=== PATIENT | female | born 1935 | race Caucasian/White ===

== ENCOUNTER 2016-07-22 04:22 | Day surgery (SDC) | payer MEDICARE, OTHER ==
[2016-07-15 12:55] LABS: BASOPHILS 0.2 %; BASOPHILS ABSOLUTE 0.01 10/3/uL (0.0-0.16); EOSINOPHILS 4.4 %; HEMATOCRIT 35.8 % (36.0-48.0); HEMOGLOBIN 11.7 g/dL (12.0-16.0); IMMATURE GRANULOCYTES 0.2 %; IMMATURE GRANULOCYTES ABSOLUTE 0.01 10/3/uL (0.0-0.11); LYMPHOCYTES 34.2 %; LYMPHOCYTES ABSOLUTE 1.57 10/3/uL (0.67-4.30); MEAN CORPUSCULAR HEMOGLOB 30.5 pg (26.0-34.0); MEAN CORPUSCULAR VOLUME 93.5 fL (80-100); MEAN PLATELET VOLUME 8.8 fL (9.2-13.0); MONOCYTES ABSOLUTE 0.46 10/3/uL (0.21-1.20); NEUTROPHILS ABSOLUTE 2.34 10/3/uL (2.02-8.40); PLATELET COUNT 228 10/3/uL (150-400); RBC DISTRIBUTION WIDTH 14.6 % (12.0-16.0); RED CELL COUNT 3.83 10/6/uL (4.0-5.6); WHITE BLOOD CELLS 4.6 10/3/uL (4.5-10.5)
[2016-07-15 12:58] LABS: MANUAL DIFF NO %; MEAN CORPUS HGB CONC 32.7 g/dL (32.0-36.0)
[2016-07-15 13:11] LABS: ALBUMIN 3.7 G/DL (3.5-5.0); ALKALINE PHOSPHATASE 74 U/L (45-117); BUN (BLOOD UREA NITROGEN) 15 MG/DL (6-23); CALCIUM, SERUM 9.2 MG/DL (8.5-10.4); CHLORIDE, SERUM 106 MMOL/L (96-112); CO2 (CARBON DIOXIDE) 30 MMOL/L (24-34); CREATININE 0.84 MG/DL (0.55-1.02); GFR AFRICAN AMERICAN 74 ML/MIN (>=60); GFR NON AFRICAN AMERICAN 64 ML/MIN (>=60); GLOBULIN 3.8 G/DL (2.5-4.1); GLUCOSE, SERUM 104 MG/DL (60-99); POTASSIUM, SERUM 3.7 MMOL/L (3.5-5.3); SGOT(AST) 15 U/L (5-40); SGPT(ALT) 20 U/L (5-65); SODIUM, SERUM 143 MMOL/L (135-148); TOTAL BILIRUBIN 0.4 MG/DL (0-1.2); TOTAL PROTEIN 7.5 G/DL (6.0-8.5)
--- NOTE | ~2016-07-22 | OP ---
Record Of Operation [facility] [address] [place]. [address] NAME: ENEDINA RODRIGUES : 31 STATUS : REG [facility]#: [id number] AGE: 81 ADM/REG DATE : 07/22/16 MR#: [id number] REPORT SERV DATE: 07/22/16 DICTATED BY: JUAN MANUEL KIRK DATE: 07/22/16 REPORT STATUS : Draft TRANSCRIBED BY: MODL DATE: 07/22/16 DATE OF PROCEDURE: 07/22/2016 PREOPERATIVE DIAGNOSIS: Ventral incisional hernia. POSTOPERATIVE DIAGNOSIS: Ventral incisional hernia. PROCEDURE PERFORMED: Repair of ventral incisional hernia with implantation of mesh. SURGEON: Juan Manuel Kirk M.D. ANESTHESIA: General. ESTIMATED BLOOD LOSS: Minimal. SPECIMENS REMOVED: None. BRIEF HISTORY: Ms. Rodrigues is an 81-year-old female, who has developed a ventral incisional hernia from the small midline incision she had from the laparoscopic colon procedure. This has been steadily growing, becoming tender and symptomatic. She states that she is unable to sleep and function because of the pain. She presents today for repair. FINDINGS AT THE TIME OF PROCEDURE: Ms. Rodrigues was noted to have a fairly sizable fascial defect with rectus diastasis. This was repaired using a Ventralight ST patch. DETAILS: Following informed consent, the patient was taken to the operative suite and after successful induction of general endotracheal anesthesia, her abdomen was prepped and draped in usual sterile fashion. Ioban adhesive drape was applied. An incision was made directly on top of the palpable hernia defect. Dissection was carried through skin and subcutaneous tissues. Hernia sac was densely adherent to the umbilical skin and we this sharply with Metzenbaum scissors and actually opened the hernia sac. There was no incarcerated viscera, but this allowed us to clearly palpate the fascial defect. She had a rectus diastasis particularly on the right side. After identifying the fascial defect, we circumferentially dissected the subfascial extraperitoneal plane. We then approximated the hernia sac and perineum to exclude the peritoneal cavity for mesh placement. We measured the fascial defect and opted to use a 6 cm Ventralight patch. This was deployed in the subfascial extraperitoneal space and secured to the fascia using interrupted Ethibond sutures. Once the mesh had been properly fixated, we trimmed the mesh tabs in appropriate length and then approximated the fascia over the mesh using interrupted Ethibond sutures. The wound was copiously irrigated. Hemostasis was found to be secured. Skin edges were reapproximated using 3-0 Vicryl subdermals followed by 4-0 Monocryl subcuticular suture and Dermabond. At the completion of the case, all sponge and needle counts were correct. The patient was extubated and transferred to recovery room in satisfactory condition. Record Of Operation [address] [address] NAME: ENEDINA RODRIGUES : 33 STATUS : REG [facility] PAT#: [id number] AGE: 81 ADM/REG DATE : 07/22/16 MR#: [id number] REPORT SERV DATE: 07/22/16 DICTATED BY: JUAN MANUEL KIRK DATE: 07/22/16 REPORT STATUS : Draft TRANSCRIBED BY: TERESO DATE: 07/22/16 CAROLA/TERESO Juan Manuel Kirk M.D. / [id number] CC: Maria Elena Hawk M.D.
[~2016-07-22 04:22] MED LIST: ADVAIR45P INH; DIOVAN HCT PO; GLUCPH8 PO; LOFIB67 PO; P20 PO; PCET PO; PROVENT20 INH; REQUIP25 PO; ZITHROMAX500 MG PO; ZOCOR20 PO
== END 2016-07-22 15:30 | disposition home or self-care (01) ==
LOC: SDC 04:22
PROVIDERS: Surgery
PROC: 0WUF0JZ Supplement Abdominal Wall with Synthetic Substitute, Open Approach (ICD-10-PCS; 2016-07-22)
PROC: 0WQF0ZZ Repair Abdominal Wall, Open Approach (ICD-10-PCS; principal; 2016-07-22 05:45)
DX: K43.2 Incisional hernia without obstruction or gangrene (principal); J44.9 Chronic obstructive pulmonary disease, unspecified; I10 Essential (primary) hypertension; E11.9 Type 2 diabetes mellitus without complications; G25.81 Restless legs syndrome; D64.9 Anemia, unspecified; Z88.8 Allergy status to other drugs, medicaments and biological substances
CPT/HCPCS: 80053; 82962; 85025; 87641; 93005; A9270-GY; J0690; J2405; J2710; J3010

== ENCOUNTER 2016-07-23 22:38 | Observation (INO) | payer MEDICARE, OTHER ==
--- NOTE | ~2016-07-23 | HP ---
History And Physical [place] [id number] [facility] [place]. [address] NAME: ENEDINA RODRIGUES : 33 STATUS : ADM IN [facility]#: [id number] AGE: 81 ADM/REG DATE : 07/24/16 MR#: [id number] REPORT SERV DATE: 07/24/16 DICTATED BY: EMILY FENG DATE: 07/24/16 REPORT STATUS : Draft TRANSCRIBED BY: MODL DATE: 07/24/16 DATE OF ADMISSION: 07/24/2016 POINT OF ENTRY: [facility] Emergency Department. PRIMARY CARE PHYSICIAN: Dr. Bruner. PRIMARY ONCOLOGIST: Dr. Arce. PRIMARY SURGEON: Dr. Clemens. CHIEF COMPLAINT: Possible overdose, sedation, and lethargy. HISTORY OF PRESENT ILLNESS: Ms. Rodrigues is an 81-year-old female with a history of breast cancer, status post lumpectomy as well as metastatic colon cancer, status post hemicolectomy, currently on chemotherapy, who underwent ventral incisional hernia repair surgery with Dr. Clemens on 07/22/2016, who is brought in by EMS for concerns for possible overdose. As mentioned above, she underwent a ventral incisional hernia repair surgery with Dr. Clemens on 07/22/2016. She was discharged to home. Her family members last saw her at 02:30 on Tuesday afternoon, acting fine. She reportedly took a 5 mg pill of Percocet about 03:15, and when family arrived back at her house at 05:30, she was "unresponsive," and not waking up despite repeated efforts to get her to wake up. Initial evaluation in the emergency department revealed a temperature 98.8 degrees Fahrenheit; she was saturating 95% reportedly on room air, but she was also noted to be very hypoxemic on room air, as low as 60% to 70%. Family states that she was starting to wake up upon arrival to the ER, but was still not quite back to normal. She received 0.2 mg of IV Narcan with continued improvement in the patient's level of consciousness and mental status. Labs notable for a troponin of 0.40 as well as a serum bicarb of 41. Chest x-ray was abnormal for a widened mediastinum versus possible artifact from positioning. ABG showed some mild respiratory alkalosis as well as hypoxemia. BNP was elevated at 513. Given the patient's hypoxemia as well as elevated troponin level, she was subsequently admitted to the Hospitalist Service for further evaluation and management. REVIEW OF SYSTEMS: The patient does currently endorse some shortness of breath, especially with speaking as well as the abdominal pain, but denies any chest pain, recent cough, sputum production, wheezing. Comprehensive review of systems otherwise negative unless listed in the history of present illness. PREVIOUS MEDICAL HISTORY: 1. COPD, not on home oxygen. 2. History of breast cancer, status post lumpectomy. 3. History of metastatic colon cancer, status post colectomy and chemotherapy. History And Physical [address] [address] NAME: ENEDINA RODRIGUES : 33 STATUS : ADM IN [facility]#: [id number] AGE: 81 ADM/REG DATE : 07/24/16 MR#: [id number] REPORT SERV DATE: 07/24/16 DICTATED BY: EMILY FENG DATE: 07/24/16 REPORT STATUS : Draft TRANSCRIBED BY: TERESO DATE: 07/24/16 4. Restless legs syndrome. 5. Gastroesophageal reflux disease. 6. Cyt-[id number]-[id number] diabetes mellitus type 2. 7. Multiple myeloma, on therapy. 8. Hypertension. 9. Hyperlipidemia. SURGICAL HISTORY: 1. Right hemicolectomy, 04/2015. 2. Ventral incisional hernia repair surgery, 07/22/2016. 3. Breast lumpectomy. ALLERGIES: ACTONEL. MEDICATIONS: Home medications: 1. Advair 2 puffs inhalation p.r.n. 2. Glucophage 850 mg b.i.d. 3. Zofran 4 mg 4 times daily p.r.n. 4. Percocet 10/325 one tab q.4 hours p.r.n.. 5. Requip 0.5 mg b.i.d. 6. Simvastatin 20 mg at bedtime. 7. Valsartan hydrochlorothiazide 1 tablet daily. SOCIAL HISTORY: She denies any tobacco, alcohol, or illicit. She is a former smoker. FAMILY MEDICAL HISTORY: Mother with history of cholangiocarcinoma; father with coronary artery disease as well as rheumatic heart disease; sibling with history of coronary artery disease at an early age, in the 50s, as well as hypertension. LABS AND IMAGIN. White count is 7.2, hemoglobin is 10.6, hematocrit is 32.4, and platelet count is 233. INR is 1.4. 2. Sodium is 140, potassium 2.9, chloride 95, carbon dioxide 41, BUN 11, creatinine 0.77, glucose is 186, calcium is 9.0. Magnesium is 2.5. Protein is 7.3, albumin 3.0, bilirubin is 0.7. ALT is 15, AST 16, alkaline phosphatase is 63. 3. Troponin is 0.40. BNP is 513. 4. Urine drug screen as well as serum drug screen is negative. 5. Chest x-ray per my review shows a widened mediastinum versus possible artifact from positioning. I do not appreciate any focal infiltrates or consolidation or evidence of intravascular volume overload. 6. ABG: A pH of 7.50, pCO2 is 52, pO2 is 59, bicarb is 40, saturating 98% on 2 L per nasal cannula. 7. EKG per my review shows normal sinus rhythm with an incomplete right bundle branch block as well as early changes of LVH, but otherwise no evidence of any acute ischemia or infarction. PHYSICAL EXAMINATION: History And Physical [address] [address] NAME: ENEDINA RODRIGUES : 33 STATUS : ADM IN [facility]#: [id number] AGE: 81 ADM/REG DATE : 07/24/16 MR#: [id number] REPORT SERV DATE: 07/24/16 DICTATED BY: EMILY FENG DATE: 07/24/16 REPORT STATUS : Draft TRANSCRIBED BY: MODL DATE: 07/24/16 VITAL SIGNS: Temperature is 98.8 degrees Fahrenheit, pulse is 100, respirations 14, saturating 95% on room air, blood pressure 110/65. On recheck, blood pressure is now 114/84, pulse of 99, saturating 94% on 3 L nasal cannula. GENERAL: The patient is awake, alert, and in no acute distress, resting comfortably in bed. She is a well-developed and well-nourished elderly female. Family is at bedside. HEENT: Atraumatic and normocephalic. Moist mucous membranes. Pupils are equal, round, and reactive to light and accommodation. Extraocular eye movements are intact. No scleral icterus. NECK: No jugular venous distention. No carotid bruits. CARDIAC: Regular rate and rhythm. No murmurs, rubs, or gallops. Normal S1 and S2. LUNGS: Is on oxygen, is somewhat tachypneic and short of breath. She has diffuse inspiratory crackles, primarily in the bases, but also about jail up the lung bolaños. No wheezes or rhonchi appreciated. ABDOMEN: Currently has an abdominal binder in place. Her incision is currently bandaged. I did not take down the incision at this time. Hypoactive bowel sounds throughout. No rebound, guarding, or rigidity. EXTREMITIES: Warm and well perfused. No cyanosis, clubbing, or edema. SKIN: Warm and dry. PSYCHIATRIC: Affect appropriate. NEUROLOGIC: Alert and oriented x3. Cranial nerves 2 through 12 grossly intact. Speech is normal. Gait not assessed. ASSESSMENT: Ms. Rodrigues is an 81-year-old female who is postoperative day 1 from a ventral incisional hernia repair surgery, who was brought to the emergency department for unresponsiveness and sedation, likely secondary to narcotics, who instantly is now found to be hypoxemic as well as with an elevated troponin level. Problem List: 1. Narcotic overdose with sedation and lethargy, now resolved. 2. Acute hypoxic respiratory failure. 3. Elevated troponin value. 4. Hypokalemia. 5. Elevated BNP level. 6. Metabolic alkalosis. 7. Postoperative day 1, ventral incisional hernia repair surgery. PLAN: 1. Narcotic overdose, status post Narcan administration. The patient's mental status is now back to her baseline. We will continue to hold sedating medications given her recent sedation and lethargy requiring Narcan. 2. Elevated troponin value. The patient denies chest pain. EKG is nonischemic. She does have risk factors including diabetes, hypertension, hyperlipidemia, as well as family history. We will continue to trend out cardiac enzymes, checking an echocardiogram as well as consulting cardiology for assistance. We will place the patient on an aspirin. Continue the patient's home statin. 3. Acute hypoxic respiratory failure. The patient does have a history of COPD, but is not on home oxygen at this time. She does report some shortness of breath. Chest x-ray is History And Physical [address] [address] NAME: ENEDINA RODRIGUES : 33 STATUS : ADM IN PAT#: [id number] AGE: 81 ADM/REG DATE : 07/24/16 MR#: [id number] REPORT SERV DATE: 07/24/16 DICTATED BY: EMILY FENG DATE: 07/24/16 REPORT STATUS : Draft TRANSCRIBED BY: TERESO DATE: 07/24/16 markedly abnormal for a concern for a wide mediastinum of unclear significance. We will check a CTA of the chest to rule out PE or other cardiopulmonary abnormality that may contribute to the patient's shortness of breath and hypoxemia. Place the patient on DuoNeb, Brovana, Pulmicort, as well as some low-dose steroids. We will attempt to wean oxygen as tolerated. 4. Elevated BNP level. The patient does have elevated BNP level as well as some inspiratory crackles, but otherwise appears euvolemic at this time. Follow up echocardiogram as well as CT of the chest. We will hold off on any Lasix diuresis at this time. 5. Postoperative day 1 from ventral incisional hernia repair surgery. We will inform Dr. Clemens of the patient's admission, defer to him. 6. DVT prophylaxis, Lovenox subcu. 7. Code Status: The patient wishes to be full code. JCB/TERESO Emily Feng MD / [id number] CC: Maria Elena Hawk M.D. Edward Arrowsmith, M.D.
--- NOTE | ~2016-07-23 | DS ---
Discharge Summary [facility] [address] [facility]. [address] NAME: ENEDINA RODRIGUES : 31 STATUS : ADM Berna PAT#: [id number] AGE: 81 ADM/REG DATE : 07/24/16 MR#: [id number] REPORT SERV DATE: 07/25/16 DICTATED BY: DEWANYE GARCIA DATE: 07/25/16 REPORT STATUS : Draft TRANSCRIBED BY: MODL DATE: 07/25/16 ADMISSION DATE: 07/24/2016 DISCHARGE DATE: 07/25/2016 DIAGNOSES ON ADMISSION: 1. Narcotic overdose with sedation and lethargy, resolved on admission. 2. Acute hypoxic respiratory failure, resolved same day on 07/24/2016. Minimally elevated troponin. 3. Hypokalemia. 4. Elevated BNP level. 5. Postoperative day 1 status post ventral incisional hernia repair. DIAGNOSES ON DISCHARGE: 1. No evidence of lethargy. No evidence of sedation. Narcotic overdose secondary to pain medications. Resolved on the same admission day. 2. Hypoxic respiratory failure, present on admission, resolved. 3. Minimally elevated troponin secondary to demand ischemia. No evidence of heart damage. 4. Hypokalemia, resolved. 5. Normal echocardiogram with ejection fraction 60%. 6. Right lower lobe pneumonia versus atelectasis secondary to recent hernia surgery. Complete total seven days of antibiotics. 7. Pulmonary fibrosis on the CT of the chest, needs outpatient followup with harness and bag inspector; Dr. Bruner to arrange. 8. History of chronic obstructive pulmonary disease. No evidence of exacerbation. 9. Hypoxemia on ambulation. Question if related to combination of her pulmonary fibrosis recent surgery. Oxygen arranged for ambulation. 10.History of breast cancer. 11.History of metastatic colon cancer, status post partial colectomy on chemotherapy per oncologist. CONSULTANTS ON THE CASE: Delivery Professional, Dr. Sol and also General Surgery, Dr. Currie. IMAGING STUDIES DONE DURING THIS HOSPITALIZATION: CTA of the chest on 07/24/2016, showed pulmonary fibrosis, suspect superimposed right lower lobe pneumonia, marked prominence of the arterial architecture. There is no PE, but findings suggest pulmonary arterial hypertension, a preliminary report was sent. Echocardiography done on 07/24/2016, showed technically difficult study due to acoustic windows normal left ventricular size and systolic function. Estimated ejection fraction 60%. No regional wall motion abnormalities identified. Mild diastolic dysfunction, borderline. Normal right ventricular size and systolic function. Normal left atrial size. Aortic valve sclerosis without stenosis. No evidence of pericardial effusion. HISTORY OF PRESENT ILLNESS: Briefly, this is a very pleasant 81-year-old female, who was admitted by my colleague Dr. Koch for sedation and lethargy. She had incisional hernia repair surgery by Dr. Clemens on 07/22/2016. She was discharged home. On the same day, Discharge Summary [address] [address] NAME: ENEDINA RODRIGUES : 33 STATUS : ADM [place]a PAT#: [id number] AGE: 81 ADM/REG DATE : 07/24/16 MR#: [id number] REPORT SERV DATE: 07/25/16 DICTATED BY: DEWAYNE GARCIA DATE: 07/25/16 REPORT STATUS : Draft TRANSCRIBED BY: TERESO DATE: 07/25/16Tuesday afternoon, she took 5 mg pill of Percocet and then became lethargic and unresponsive. For the details, see history of present illness dictated by Dr. Koch on 07/24/2016. HOSPITAL COURSE: Briefly, even in the dictation of Dr. Koch, it was stated that in the emergency room, the patient was already responsive when she was given Narcan. She responded very well to Narcan. She was oversedated from narcotics and since she was after surgery of the abdominal ventral hernia repair, her oxygenation was not good at the baseline as well and so, narcotic medications made her oversedated. The patient improved very fast, she was doing well, and I saw her during the day on 07/24/2016, her level of consciousness was normal, she was back to her baseline, as well as her oxygenation has improved. She did not have any shortness of breath and she did not have any respiratory failure. The patient's abdominal pain has improved and she does not need any more hydrocodone or Percocet. She can manage it with Tylenol as well as she had minimally elevated troponin on admission, and business and financial counsel was consulted. She was seen by Dr. Sol. He thinks that minimally elevated troponin was related to demand ischemia from the stress, and echocardiogram showed normal echocardiogram without any wall motion abnormalities. Dr. Sol recommended the patient to be discharged without any cardiology followup. Since she does not need a Cardiology followup, I discussed personally with Dr. Sol. Regarding the CT scan of the chest, it showed pulmonary fibrosis with a probably superimposed pneumonia on the right side. The patient has history of longstanding COPD, and she was unaware of diagnosis of pulmonary fibrosis. I recommended to treat her for pneumonia since she was already started by Dr. Koch on Rocephin and azithromycin. We will give her Levaquin and she will complete total seven days of antibiotics as well as her oxygenation improved. Her oxygen saturation on room air at rest was 90%, on ambulation was 88 with improvement to 90% but mostly 88% to 87%, so we asked Machine Feeder Floorperson to arrange for oxygen on ambulation. I think the hypoxemia is combination of her COPD/pulmonary fibrosis with her recent surgery and she needs to do at home incentive spirometry and I think there is a possibility that her oxygenation may improve farther. Overall, the patient is doing well. She is able to ambulate without any problems and she was ready to be discharged home. This was discussed with the patient and her sister, and I also recommended to follow up with Dr. Bruner, and Dr. Bruner to check chest x-ray in a week, as well as she needs to be referred to harness and bag inspector for further evaluation of her pulmonary fibrosis and this should be done by Dr. Bruner, her primary care physician. This was also discussed with the patient and her sister. Overall, the patient is doing well. She is afebrile. Her white count during this hospitalization has always been normal, like yesterday on 07/23/2016 was 7.2, today on 07/25/2016 was 4.7. DISCHARGE MEDICATIONS: Aspirin 81 mg daily, simvastatin 20 mg daily, Advair two puffs inhaled p.r.n., Zofran 4 mg p.o. q.4 hours p.r.n. The patient to avoid any narcotic medication; no more Percocet. Metformin 850 p.o. b.i.d., Requip 0.5 mg p.o. twice a day, valsartan with HCTZ 80/12.5 one tablet daily, Levaquin 750 mg p.o. daily for five more days to complete total seven days of antibiotics, prednisone 20 mg p.o. daily for three more days, albuterol MDI one to two puffs q.6 hours p.r.n. for shortness of breath. Incentive Discharge Summary [address] [address] NAME: ENEDINA RODRIGUES : 33 STATUS : ADM [place] PAT#: [id number] AGE: 81 ADM/REG DATE : 07/24/16 MR#: [id number] REPORT SERV DATE: 07/25/16 DICTATED BY: DEWAYNE GARCIA DATE: 07/25/16 REPORT STATUS : Draft TRANSCRIBED BY: TERESO DATE: 07/25/16 spirometry recommended at home. I spent 45 minutes on discharge. The patient was discharged in stable condition. MG/TERESO Dewayne Garcia M.D. / [id number] CC: Maria Elena Barnett M.D. Steven Clark Kennedy, M.D.
--- NOTE | ~2016-07-23 | CN ---
Consultation Report [facility] [address] [place]. [address] NAME: ENEDINA RODRIGUES : 31 STATUS : ADM IN [facility]#: [id number] AGE: 81 ADM/REG DATE : 07/24/16 MR#: [id number] REPORT SERV DATE: 07/24/16 DICTATED BY: SANKET VASQUEZ DATE: 07/24/16 REPORT STATUS : Draft TRANSCRIBED BY: MODL DATE: 07/24/16 CONSULTATION DATE OF CONSULTATION: 07/24/2016 REASON FOR CONSULTATION: Troponinemia. HISTORY OF PRESENT ILLNESS: Ms. Rodrigues is a pleasant, 81-year-old female with a history of breast cancer, status post lumpectomy, metastatic colon cancer, status post hemicolectomy, status post recent ventral hernia repair (07/22/2016), who was discharged home with routine pain medications and after taking a Percocet developed unresponsiveness. She was admitted and triage labs were ordered. She was given Narcan with complete resolution of her altered mental status. However, she had an elevated incidental troponin of 0.4, which is now 0.49. This prompted consultation. In speaking with her and her family, she has absolutely no cardiac symptoms whatsoever. She denies having any chest pains, palpitations, pressures, dyspnea, dizziness, or loss of consciousness outside of this one episode. She otherwise functions independently and does not have any exertional symptoms in her day-to-day life. PAST MEDICAL HISTORY: As above. FAMILY HISTORY: Noncontributory for premature cardiovascular disease. SOCIAL HISTORY: The patient functions independently under normal circumstances. She denies drinking alcohol, smoking, or doing drugs. ALLERGIES: TO ACTONEL. REVIEW OF SYSTEMS: As above, all other systems otherwise negative. PHYSICAL EXAMINATION: VITAL SIGNS: Pressure 152/84, pulse 81, sinus rhythm, temperature 97.7. GENERAL: Well developed, well nourished, no acute distress. NEURO: Awake, alert and oriented x3; no focal deficits, appropriate mood. HEENT: Moist mucous membranes, anicteric sclerae, no nasal discharge. NECK: No JVD, no carotid bruit. LUNGS: Clear to auscultation bilaterally, no wheezes, rales or rhonchi. CV: Regular rhythm, normal S1/S2, no murmurs, rubs or gallops. ABD: Status post ventral hernia repair, soft, nontender. No rebound or guarding. EXT: No pitting edema, normal distal pulses. SKIN: Warm, dry and intact; no rash. PERTINENT TEST FINDINGS: Troponin 0.4 and 0.49, potassium 3.6, creatinine 0.82. White blood cell count 7.2. EKG with sinus rhythm. T-wave inversions in lead 3 and AVF. Otherwise, Consultation Report [address] [place]. [address] NAME: ENEDINA RODRIGUES : 31 STATUS : ADM IN PAT#: [id number] AGE: 81 ADM/REG DATE : 07/24/16 MR#: [id number] REPORT SERV DATE: 07/24/16 DICTATED BY: SANKET VASQUEZ DATE: 07/24/16 REPORT STATUS : Draft TRANSCRIBED BY: TERESO DATE: 07/24/16 normal EKG. IMPRESSION AND PLAN: Ms. Rodrigues is a pleasant, 81-year-old female with multiple comorbidities and metastatic cancer, who is recently status post ventral hernia repair with altered mental status in the setting of narcotic use, that is now completely resolved, with an incidental troponin of 0.4 and 0.49. Given her history and clinical course, it is likely that this troponinemia is simply a demand ischemia finding, in the setting of recent surgery as well as multiple comorbidities/chemotherapy ongoing. Accordingly, I have no recommendations to invasively manage this. I believe that given her age and risk factors, it is presumed that she likely has some degree of coronary artery disease. Therefore, she will benefit from aspirin as well as continuation of her statin. Outside of this, checking an echocardiogram will be helpful. I recommend that she continue therapies for her cancer and other medical problems, with close followup with her primary care provider. Should she develop any exertional symptoms, chest pains or chest pressures, further workup may be entertained if appropriate. JACKELINE/TERESO Sanket Vasquez MD / [id number] CC: Elizabeth Rodriguez M.D.
[2016-07-23 22:23] LABS: BE (BASE EXCESS) 14.7 MEQ/L (0 +/- 2.5); CARBOXYHEMOGLOBIN 1.5 % (0-3); HCO3 (ACTUAL BICARBONATE) 39.9 MEQ/L (23-27); HEMOBLOGIN CONTENT 11.3 G/DL (12-16); INSTRUMENT SERIAL # 8087; METHEMOGLOBIN 0.1 % (0-3); O2 CONTENT 14.1 VOL% (18-24); OPERATOR ID 17589; PCO2 (CO2 TENSION) 52 MMHG (35-45); PO2 (O2 TENSION) 59 MMHG (79-93); SAMPLE Arterial
[2016-07-23 22:24] LABS: DEVICE NC
[2016-07-23 22:29] LABS: BASOPHILS 0.1 %; BASOPHILS ABSOLUTE 0.01 10/3/uL (0.0-0.16); EOSINOPHILS 1.5 %; EOSINOPHILS ABSOLUTE 0.11 10/3/uL (0.0-0.53); HEMATOCRIT 32.4 % (36.0-48.0); HEMOGLOBIN 10.6 g/dL (12.0-16.0); IMMATURE GRANULOCYTES 0.1 %; IMMATURE GRANULOCYTES ABSOLUTE 0.01 10/3/uL (0.0-0.11); LYMPHOCYTES 10.9 %; LYMPHOCYTES ABSOLUTE 0.78 10/3/uL (0.67-4.30); MEAN CORPUS HGB CONC 32.7 g/dL (32.0-36.0); MEAN CORPUSCULAR HEMOGLOB 30.9 pg (26.0-34.0); MEAN CORPUSCULAR VOLUME 94.5 fL (80-100); MONOCYTES 9.2 %; MONOCYTES ABSOLUTE 0.66 10/3/uL (0.21-1.20); NEUTROPHILS 78.2 %; NEUTROPHILS ABSOLUTE 5.58 10/3/uL (2.02-8.40); PLATELET COUNT 233 10/3/uL (150-400); RBC DISTRIBUTION WIDTH 14.8 % (12.0-16.0); RED CELL COUNT 3.43 10/6/uL (4.0-5.6)
[2016-07-23 22:35] LABS: ER CBC TAT 0 Hrs 10 Mins; MANUAL DIFF NO %; WHITE BLOOD CELLS 7.2 10/3/uL (4.5-10.5)
[2016-07-23 22:46] LABS: DIRECT BILIRUBIN 0.2 MG/DL (0.0-0.4); INDIRECT BILIRUBIN(NOT ORDER) 0.5 MG/DL (0.1-0.9); TOTAL BILIRUBIN 0.7 MG/DL (0-1.2); TOTAL PROTEIN 7.3 G/DL (6.0-8.5)
[2016-07-23 22:47] LABS: ACETAMINOPHEN LEVEL (TYLENOL) < 2.0 MCG/ML (10.0-20.0); ALCOHOL < 3 MG/DL (0); BUN (BLOOD UREA NITROGEN) 11 MG/DL (6-23); CHEST PAIN PROFILE TAT 0 Hrs 22 Mins; CHLORIDE, SERUM 95 MMOL/L (96-112); CO2 (CARBON DIOXIDE) 41 MMOL/L (24-34); CREATININE 0.77 MG/DL (0.55-1.02); GFR AFRICAN AMERICAN 83 ML/MIN (>=60); GFR NON AFRICAN AMERICAN 71 ML/MIN (>=60); GLUCOSE, SERUM 186 MG/DL (60-99); POTASSIUM, SERUM 2.9 MMOL/L (3.5-5.3); SALICYLATE < 1.7 MG/DL (-); SODIUM, SERUM 140 MMOL/L (135-148)
[2016-07-23 23:02] LABS: INTERNATIONAL NORMAL RATI 1.4 UNITS (-); PARTIAL THROMBO TIME 29.1 SEC (22.5-37.2)
[2016-07-23 23:03] LABS: PROTIME (NOT ORD) 16.8 SEC (12.0-14.5)
[2016-07-23 23:19] LABS: AMPHETAMINES (NOT ORD) NEG (NEG); BARBITURATES (NOT ORDERED NEG (NEG); BENZODIAZEPINES (NOT ORD) NEG (NEG); CANNABINOIDS (THC) NEG (NEG); COCAINE (NOT ORDERED) NEG (NEG); OPIATES NEG (NEG); PHENCYCLIDINE(PCP) NEG (NEG); TRICYCLICS NEG (NEG)
[2016-07-24] MEDS ORDERED: ZOFRAN4 PO (00:40)
[2016-07-24] MEDS ORDERED: DIOVAN HCT PO (00:41)
[2016-07-24] MEDS ORDERED: REQUIP5 PO (00:41)
[2016-07-24] MEDS ORDERED: PERCOCET 10/3251 TAB PO (00:41)
[2016-07-24] MEDS ORDERED: GLUCPH8 PO (00:41)
[2016-07-24] MEDS ORDERED: ADVAIR45P INH (00:42)
[2016-07-24] MEDS ORDERED: ZOCOR20 PO (00:42)
[2016-07-24 05:45] LABS: CK-MB 1.3 NG/ML; CPK 220 U/L (0-200); FREE T4 1.44 NG/DL (0.76-1.46)
[2016-07-24 05:53] LABS: AMMONIA < 10 UMOL/L (11-32)
[2016-07-24 07:29] LABS: BUN (BLOOD UREA NITROGEN) 10 MG/DL (6-23); CALCIUM, SERUM 8.2 MG/DL (8.5-10.4); CHLORIDE, SERUM 101 MMOL/L (96-112); CREATININE 0.82 MG/DL (0.55-1.02); GFR AFRICAN AMERICAN 77 ML/MIN (>=60); GFR NON AFRICAN AMERICAN 66 ML/MIN (>=60); GLUCOSE, SERUM 174 MG/DL (60-99); SODIUM, SERUM 141 MMOL/L (135-148)
[2016-07-24 07:30] LABS: CO2 (CARBON DIOXIDE) 35 MMOL/L (24-34); POTASSIUM, SERUM 3.6 MMOL/L (3.5-5.3)
[2016-07-24 07:35] LABS: GLYCOHEMOGLOBIN (HbA1c) 6.6 % (4.7-6.1)
[2016-07-24 09:35] LABS: CK-MB 1.3 NG/ML; CPK 210 U/L (0-200); TROPONIN I 0.49 NG/ML (<0.05)
[2016-07-25 06:03] LABS: BASOPHILS 0 %; EOSINOPHILS 6.1 %; EOSINOPHILS ABSOLUTE 0.29 10/3/uL (0.0-0.53); HEMATOCRIT 29.7 % (36.0-48.0); HEMOGLOBIN 9.5 g/dL (12.0-16.0); IMMATURE GRANULOCYTES 0.2 %; IMMATURE GRANULOCYTES ABSOLUTE 0.01 10/3/uL (0.0-0.11); LYMPHOCYTES 21.4 %; LYMPHOCYTES ABSOLUTE 1.01 10/3/uL (0.67-4.30); MEAN CORPUSCULAR HEMOGLOB 30.8 pg (26.0-34.0); MEAN CORPUSCULAR VOLUME 96.4 fL (80-100); MEAN PLATELET VOLUME 9.4 fL (9.2-13.0); MONOCYTES 11.7 %; MONOCYTES ABSOLUTE 0.55 10/3/uL (0.21-1.20); NEUTROPHILS 60.6 %; NEUTROPHILS ABSOLUTE 2.86 10/3/uL (2.02-8.40); PLATELET COUNT 209 10/3/uL (150-400); RED CELL COUNT 3.08 10/6/uL (4.0-5.6); WHITE BLOOD CELLS 4.7 10/3/uL (4.5-10.5)
[2016-07-25 06:04] LABS: BUN (BLOOD UREA NITROGEN) 10 MG/DL (6-23); CALCIUM, SERUM 8.6 MG/DL (8.5-10.4); CHLORIDE, SERUM 105 MMOL/L (96-112); CO2 (CARBON DIOXIDE) 31 MMOL/L (24-34); CREATININE 0.61 MG/DL (0.55-1.02); GFR AFRICAN AMERICAN 97 ML/MIN (>=60); GFR NON AFRICAN AMERICAN 84 ML/MIN (>=60); POTASSIUM, SERUM 3.6 MMOL/L (3.5-5.3); SODIUM, SERUM 142 MMOL/L (135-148)
[2016-07-25 06:05] LABS: GLUCOSE, SERUM 114 MG/DL (60-99)
[2016-07-25 06:11] LABS: MANUAL DIFF NO %
[2016-07-25] MEDS ORDERED: HALF81 PO (10:48)
[2016-07-25] MEDS ORDERED: LEVAQUIN750 MG PO (10:50)
[2016-07-25] MEDS ORDERED: P20 PO (10:50)
[2016-07-25] MEDS ORDERED: PROVHFA INH (10:51)
== END 2016-07-25 17:43 | disposition home or self-care (01) ==
LOC: ER 22:38 → 5NO 07-24 02:01
PROVIDERS: Emergency Medicine; Hospitalist
DX: T40.601A Poisoning by unspecified narcotics, accidental (unintentional), initial encounter (principal); J96.01 Acute respiratory failure with hypoxia; E87.6 Hypokalemia; Z85.3 Personal history of malignant neoplasm of breast; J44.9 Chronic obstructive pulmonary disease, unspecified; G25.81 Restless legs syndrome; K21.9 Gastro-esophageal reflux disease without esophagitis; E11.9 Type 2 diabetes mellitus without complications; I10 Essential (primary) hypertension; E78.5 Hyperlipidemia, unspecified; Z88.8 Allergy status to other drugs, medicaments and biological substances; Z79.899 Other long term (current) drug therapy; Z98.890 Other specified postprocedural states; Z87.891 Personal history of nicotine dependence; E87.3 Alkalosis; Z79.82 Long term (current) use of aspirin
CPT/HCPCS: 36600; 71010; 71275; 80048; 80076; 80305; 80307; 82140; 82550; 82553; 82805; 82962; 83036; 83735; 83880; 84439; 84443; 84484; 85025; 85610; 85730; 93005; 93306; 94640; 96365; 96372; 96374; 96375; 96376; 99291; A9270-GY; G0378; J0456; Q9967